=== PATIENT | male | born 1995 | race Caucasian/White ===

== ENCOUNTER 2018-01-20 17:41 | Emergency (ER) | payer SELFPAY ==
[~2018-01-20] VITALS: Ht 177.8 cm; Wt 74.8 kg
--- NOTE | 2018-01-20 17:47 | NUR ---
PT VINCENZO TO ER BED 12. HERE FOR AMS S/P METH USE. APPEARS ANXIOUS. STABLE VITALS AWAITING MD BYRNES.
[2018-01-20] MEDS ORDERED: LORAZEPAM 1 MG TABLET PO ONE (18:00)
[2018-01-20 18:03] LABS: BASOPHILS % (AUTO) 0.1 % (0.0-2.0); EOSINOPHILS # (AUTO) 0.1 /CMM (0.0-0.7); EOSINOPHILS % (AUTO) 0.6 % (0.0-6.0); HEMATOCRIT 47 % (39-51); HEMOGLOBIN 16.4 g/dL (13.5-17.5); LYMPHOCYTES # (AUTO) 2.4 /CMM (0.8-4.8); LYMPHOCYTES % (AUTO) 22.7 % (20.0-44.0); MEAN CORPUSCULAR HEMOGLOBIN 31 PG (26.0-33.0); MEAN CORPUSCULAR HGB CONC 35 g/dl (31.0-36.0); MEAN CORPUSCULAR VOLUME 89 fL (80-96); MONOCYTES # (AUTO) 0.3 /CMM (0.1-1.30); MONOCYTES % (AUTO) 2.6 % (2.0-12.0); NEUTROPHILS # (AUTO) 7.7 /CMM (1.8-8.9); PLATELET COUNT (AUTO) 208 /CMM (150-450); RDW COEFFICIENT OF VARIATION 12.5 (11.5-15.0); RED BLOOD CELL COUNT(AUTO) 5.25 MIL/uL (4.5-6.0); WHITE BLOOD COUNT (AUTO) 10.5 K/uL (4.3-11.0)
[2018-01-20] MEDS ORDERED: LORAZEPAM 1 MG TABLET ONE (18:10)
[2018-01-20 18:21] LABS: CALCIUM, SERUM 9.7 mg/dL (8.5-10.1); CARBON DIOXIDE 25 mmol/L (21-32); CHLORIDE 99 mmol/L (98-107); CREATININE 1.2 mg/dL (0.6-1.3); GLUCOSE 101 mg/dL (74-106); POTASSIUM 3.2 mmol/L (3.5-5.1); SODIUM SERUM 138 mmol/L (136-145); UREA NITROGEN, BLOOD 12 mg/dL (7-18)
[2018-01-20 18:31] LABS: ALANINE AMINOTRANSFERASE 40 U/L (12-78); ALBUMIN 4.5 g/dL (3.4-5.0); ALKALINE PHOSPHATASE 98 U/L (46-116); ASPARTATE AMINOTRANSFERASE 33 U/L (15-37); BILIRUBIN,DIRECT 0.2 mg/dL (0.0-0.2); BILIRUBIN,TOTAL 0.7 mg/dL (0.2-1.0); SALICYLATE 2.9 mg/dL (2.8-20.0); TOTAL PROTEIN, SERUM 8.2 g/dL (6.4-8.2)
[2018-01-20 19:32] LABS: ACETAMINOPHEN < 2 ug/ml (10-30); ALCOHOL, BLOOD < 3 mg/dL (0-0)
--- NOTE | 2018-01-20 19:40 | NUR ---
DR YING AT BEDSIDE FOR EVAL.
--- NOTE | 2018-01-20 19:42 | NUR ---
PT IS AAOX4, AMBULATORY W/ STEADY GAIT. OK FOR D/C. VERBALLY DISCHARGE BY DR YING.
[2018-01-20 19:43] VITALS: BP 132/84
== END 2018-01-20 19:44 | disposition home or self-care (01) ==
LOC: ER 17:43
DX: F15.10 Other stimulant abuse, uncomplicated (principal)
CPT/HCPCS: 36415; 80048; 80076; 80329; 85025; 99284; A4606; G0480 ×2; Z7610

== ENCOUNTER 2018-01-23 08:39 | Inpatient (IN) | payer SELFPAY ==
[~2018-01-23] VITALS: Ht 175.3 cm; Wt 81.2 kg
--- NOTE | 2018-01-23 11:00 | NUR ---
[id number] FROM STRE[address]: BIZARRE BEHAVIOR S/P USING METHAMPHETAMINES, PT WAS SEEN BY , NO FURTHER ORDERS GIVEN.
--- NOTE | 2018-01-23 15:00 | NUR ---
DR MONTES DE OCA AT BS
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
[2018-01-23] MEDS ORDERED: LORAZEPAM 1 MG TABLET ONE (15:26)
--- NOTE | 2018-01-23 15:27 | NUR ---
THIEN SHEET METAL DUCT INSTALLER HELPER AT
[2018-01-23] MEDS ORDERED: LORAZEPAM 1 MG TABLET PO ONE (15:30)
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
--- NOTE | 2018-01-23 15:45 | NUR ---
PT BECOMING RESTLESSNESS, AND AGGRESSIVE TOWARDS THE STAFF. ZYPREXA 10MG GIVEN IM INSTEAD OF ZYPREXA PO.
--- NOTE | 2018-01-23 15:46 | NUR ---
ZYPREXA 10MG TABLET WASTED AND WITNESSED BY ISHMAEL, CHARGE NURSE.
[2018-01-23] MEDS ORDERED: OLANZAPINE 5 MG TABLET ONE (15:49)
[2018-01-23] MEDS ORDERED: OLANZAPINE 10 MG VIAL IM ONE ×4 (15:55→22:00)
[2018-01-23] MEDS ORDERED: OLANZAPINE 5 MG TABLET PO ONE (16:00)
--- NOTE | 2018-01-23 16:12 | NUR ---
NAINA, PTS FRIEND AND THIEN AT BS.
[2018-01-23] MEDS ORDERED: LORAZEPAM INJ 2 MG/ML VIAL IM ONE ×2 (16:30→21:30)
--- NOTE | 2018-01-23 17:07 | NUR ---
Patient is resting comfortably in bed with eyes closed. Easily aroused. VSS
--- NOTE | 2018-01-23 19:29 | NUR ---
PAGED EPIC FOR PANEL
--- NOTE | 2018-01-23 19:38 | NUR ---
CALLED NURSE SUP FOR MEDSURG BED WITH SITTER
[2018-01-23] MEDS ORDERED: MAGNESIUM HYDROXIDE 30 ML UDC PO PRN (21:00)
[2018-01-23] MEDS ORDERED: HYDROCODONE/APAP 5/325MG 1 EACH TABLET PO PRN (21:00)
[2018-01-23] MEDS ORDERED: ONDANSETRON HCL/PF 4 MG/2 ML VIAL IVP PRN (21:00)
[2018-01-23] MEDS ORDERED: HALOPERIDOL LACTATE INJ 5 MG/ML VIAL IM PRN (21:00)
[2018-01-23] MEDS ORDERED: MAG HYDROX/AL HYDROX/SIMETH 30 ML UDC PO PRN (21:00)
[2018-01-23] MEDS ORDERED: LIDOCAINE 2% JEL UROJET 10 ML MM ONE (21:00)
[2018-01-23] MEDS ORDERED: ACETAMINOPHEN 325 MG TABLET PO PRN (21:00)
[2018-01-23 21:07] LABS: BASOPHILS % (AUTO) 0.6 % (0.0-2.0); EOSINOPHILS # (AUTO) 0.1 /CMM (0.0-0.7); EOSINOPHILS % (AUTO) 1.5 % (0.0-6.0); HEMATOCRIT 43 % (39-51); HEMOGLOBIN 15.2 g/dL (13.5-17.5); LYMPHOCYTES # (AUTO) 2.1 /CMM (0.8-4.8); LYMPHOCYTES % (AUTO) 40.6 % (20.0-44.0); MEAN CORPUSCULAR HEMOGLOBIN 32 PG (26.0-33.0); MEAN CORPUSCULAR HGB CONC 35 g/dl (31.0-36.0); MEAN CORPUSCULAR VOLUME 90 fL (80-96); MONOCYTES # (AUTO) 0.6 /CMM (0.1-1.30); MONOCYTES % (AUTO) 11.3 % (2.0-12.0); NEUTROPHILS # (AUTO) 2.3 /CMM (1.8-8.9); PLATELET COUNT (AUTO) 169 /CMM (150-450); RDW COEFFICIENT OF VARIATION 12.8 (11.5-15.0); RED BLOOD CELL COUNT(AUTO) 4.82 MIL/uL (4.5-6.0); WHITE BLOOD COUNT (AUTO) 5.1 K/uL (4.3-11.0)
[2018-01-23 21:15] LABS: CALCIUM, SERUM 8.9 mg/dL (8.5-10.1); CARBON DIOXIDE 26 mmol/L (21-32); CHLORIDE 104 mmol/L (98-107); CREATININE 0.9 mg/dL (0.6-1.3); GLUCOSE 85 mg/dL (74-106); POTASSIUM 3.9 mmol/L (3.5-5.1); SODIUM SERUM 141 mmol/L (136-145); UREA NITROGEN, BLOOD 12 mg/dL (7-18)
[2018-01-23] MEDS ORDERED: LORAZEPAM INJ 2 MG/ML VIAL ONE (21:15)
[2018-01-23 21:18] LABS: ALANINE AMINOTRANSFERASE 34 U/L (12-78); ALBUMIN 3.9 g/dL (3.4-5.0); ALCOHOL, BLOOD < 3 mg/dL (0-0); ALKALINE PHOSPHATASE 91 U/L (46-116); ASPARTATE AMINOTRANSFERASE 25 U/L (15-37); BILIRUBIN,DIRECT 0.2 mg/dL (0.0-0.2); TOTAL PROTEIN, SERUM 7.1 g/dL (6.4-8.2)
[2018-01-23 21:19] LABS: APPEARANCE,URINE Clear (CLEAR); BILIRUBIN,URINE Negative (NEGATIVE); BLOOD, URINE Trace-lysed Ery/uL (NEGATIVE); COLOR,URINE Yellow (YELLOW); KETONES,URINE Trace (NEGATIVE); LEUKOCYTE ESTERASE ,URINE Negative (NEGATIVE); NITRITE, URINE Negative (NEGATIVE); PROTEIN,URINE Negative (NEGATIVE); UGLUCOSE Negative (NEGATIVE)
[2018-01-23 21:19] LABS: ACETAMINOPHEN 0 ug/ml (10-30); SALICYLATE 2.4 mg/dL (2.8-20.0)
--- NOTE | 2018-01-23 21:21 | NUR ---
URINE SENT TO LAB
[2018-01-23 21:39] LABS: BACTERIA,URINE Rare /HPF (None Seen); MUCUS,URINE Few /LPF (None Seen); RBC,URINE 2-3/HPF /HPF (0-2); SQUAMOUS EPITHELIAL CELL,UR Rare /HPF (None Seen); URINE AMORPHOUS URATE Few /HPF (None Seen)
--- NOTE | 2018-01-23 22:48 | NUR ---
PER DR SPENCER, OBSERVE THE PT OVERNIGHT.
--- NOTE | 2018-01-23 22:53 | NUR ---
Patient is resting comfortably in bed with eyes closed. Easily aroused. VSS
--- NOTE | 2018-01-23 23:21 | NUR ---
REPORT GIVEN TO RHIANNON Mac RN.
--- NOTE | 2018-01-23 23:30 | NUR ---
patient resting in er bed, no distress noted, skin warm and dry. will continue to monitor
--- NOTE | 2018-01-24 00:29 | NUR ---
VITAL SIGNS UPDATED. PATIENT IS RESTING IN ER BED, NO DISTRESS NOTED, SKIN WARM AND DRY. WILL CONTINUE TO MONITOR. PATIENT IS ON UTILITY WORKER ROLLER SHOP
--- NOTE | 2018-01-24 02:35 | NUR ---
report was given to wilmer CARDONA for MS admission. patient was transported to [place] via wheelchair by EMT
--- NOTE | 2018-01-24 02:45 | NUR ---
RN OPENING NOTES RECEIVED PATIENT FROM ER, ALERT AND ORIENTED X1. PATIENT IS RESTLESS AND AGITATED, UNABLE TO PROVIDE PAST MEDICAL HISTORY. S/P USING METHAMPHETAMINES. PATIENT IS FROM [place]. RESPIRATIONS EVEN AND UNLABORED. BS X4. VS STABLE. NO SOB NOTED. IV ACCESS ON LEFT HAND PATENT AND INTACT, NO REDNESS OR INFILTRATION NOTED. BED IN LOW AND LOCKED POSITION, SIDE RAILS X2. CALL LIGHT WITHIN EASY REACH. WILL CONTINUE TO MONITOR AND ASSESS DURING THE SHIFT.
[2018-01-24 03:00] VITALS: BP 99/58
--- NOTE | 2018-01-24 06:25 | NUR ---
RN CLOSING NOTES PATIENT IS SLEEPING IN BED, EASY TO AROUSE, ALERT AND ORIENTED X1. NO PAIN OR DISCOMFORT NOTED AT THIS TIME. RESPIRATIONS EVEN AND UNLABORED. VS STABLE. NO SOB NOTED. IV ACCESS ON LEFT HAND PATENT AND INTACT, NO REDNESS OR INFILTRATION NOTED. BED IN LOW AND LOCKED POSITION, SIDE RAILS X2. CALL LIGHT WITHIN EASY REACH. WILL ENDORSE TO RN DAY SHIFT FOR RAJANI.
--- NOTE | 2018-01-24 07:15 | NUR ---
MS RN NOTES PATIENT RECEIVED RESTING INSIDE ROOM, SLEEPING IN AND OUT. VERBALLY RESPONSIVE AND RESPONDS TO VERBAL AND TACTILE STIMULI. MUMBLES AUDIBLE WORDS BUT IN MIXED CZECH AND FOREIGN LANGUAGE. PATIENT CALM AT THIS TIME. WILL CONTINUE TO MONITOR. BED LOCKED AND IN LOW POSITION. BILATERAL UPPER SIDE RAILS UP AND LOCKED. CALL LIGHT WITHIN EASY REACH.
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
[2018-01-24 08:00] VITALS: BP 120/88
[2018-01-24] MEDS ORDERED: IV 1/2NS 1000 ML 1,000 ML IV PRN (09:00)
[2018-01-24] MEDS ORDERED: IV NS 0.9% 1,000 ML IV PRN (09:00)
--- NOTE | 2018-01-24 09:30 | NUR ---
MS RN NOTES PATIENT SEEN AND EXAMINED BY DR. MARTEL. NEW ORDERS NOTED AND CARRIED OUT
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
--- NOTE | 2018-01-24 11:00 | NUR ---
MS RN NOTES PATIENT WITH C/O HEADACHE WITH LEVEL OF 7/10. REQUESTED FOR PAIN MEDICATION. EXPLAINED THAT PATIENT HAS NORCO PO PRN FOR PAIN. GIVEN MEDICATION ORDERED PRN. WILL CONTINUE TO MONITOR
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
--- NOTE | 2018-01-24 11:40 | NUR ---
PURNIMA received a call back from Glen Cutler from the [place] [facility] [place] informing SW that he did get her message yesterday and spoke to Dr. Humphries last night. PURNIMA explained pt's situation and Glen was able to confirm pt's identity and inform PURNIMA that he will come by at 1:30 PM today to meet with pt. and PURNIMA. Med Surg 3 BRENDAN Talavera was updated. Addendum: 01/24/18 at 1143 by THIEN FELTON Glen Cutler from [facility] can be reached at .
--- NOTE | 2018-01-24 12:00 | NUR ---
MS RN NOTES PATIENT SLEEPING INSIDE ROOM, EASILY AROUSABLE THROUGH VERBAL AND TACTILE STIMULI. OFFERED IV INSERTION BUT PATIENT REFUSED. RISKS AND BENEFITS EXPLAINED BUT TO NO AVAIL, OFFERED X 3, PATIENT STRONGLY REFUSED. VERBALIZED HE DOES NOT NEED HYDRATION HE CAN DRINK WATER BY HIMSELF. RESPECTED PATIENT'S RIGHTS. WILL CONTINUE TO MONITOR
--- NOTE | 2018-01-24 13:00 | NUR ---
MS RN NOTES [place] CONSUL DIRECTOR ORANGE, ISAAK CROWDER, PRESENT AT UNIT. PATIENT SEEN. VERBALIZED THAT THEY WILL CONTACT PATIENT'S FAMILY IN [place] TO COME AND SEE PATIENT. WILL CONTINUE TO MONITOR
--- NOTE | 2018-01-24 14:34 | NUR ---
PURNIMA met with [place] [facility]ul Glen Cutler, supervisor in charge Nino and pt's BRENDAN Khoury by pt's bedside. Pt. is asleep at this time. Glen informed PURNIMA that he contacted [place] and pt. has a long psychiatric history and is on medications. Pt's family had called [employer] [place] to inquire about pt's whereabouts since they had not heard from the pt. Pt. moved from [place] on with his medications but lost all his belongings plus passport. Glen informed PURNIMA he will call the pt's family and have them come by from [place] to take pt. back to [place]. Glen suggested if pt. can be placed on a 5150 hold by tomorrow if he tries to leave against medical advice. artificial limb maker Nino informed PURNIMA that she will speak with nursing light industrial supervisor Fouzia for a sitter bedside and if pt. tries to AMA will ask for crisis evaluation. Consul Glen informed PURNIMA he will have the pt's psychiatrist call SW or email pt's psychiatric diagnosis and list of medications. Social Field Sales Specialist Adrianne Guerrero was updated with the aforementioned information.
[2018-01-24 16:00] VITALS: BP 100/63
--- NOTE | 2018-01-24 18:55 | NUR ---
MS RN NOTES PATIENT RESTING INSIDE ROOM, SLEEPING BUT AROUSABLE THROUGH VERBAL AND TACTILE STIMULI, THEN WOULD GO BACK TO SLEEP. PATIENT BREATHING EVEN AND UNLABORED. NO SOB OR ACUTE DISTRESS NOTED AT THIS TIME. PATIENT AFEBRILE, SKIN DRY AND WARM TO TOUCH. NO CHANGES IN LOC NOTED AT THIS TIME. WILL CONTINUE TO MONITOR. BILATERAL UPPER SIDE RAILS UP AND LOCKED. BED LOCKED AND IN LOW POSITION. BED ALARM ON. WILL ENDORSE TO INCOMING SHIFT
--- NOTE | 2018-01-24 19:40 | NUR ---
ms/rn opening notes RECEIVED PATIENT, ASLEEP, RESTING COMFORTABLY IN BED, RESPIRATIONS EVEN AND UNLABORED, WITH SITTER TO MONITOR BEHAVIOR, REFUSE IV RE INSERTION REPORTED BY AM RN, RECEIVED REPORT FROM AM RN FOR RAJANI. CALL LIGHTS WITHIN REACH, BED IN LOCK POSITION. SKIN WARM TO TOUCH, WILL PROVIDE FLUID AND KEEP COMFORTABLE.
--- NOTE | 2018-01-24 19:46 | NUR ---
Patient admitted with altered mental status,talking incoherently, drug screen positive for Amphetamines, benzo, cocaine and cannabis. Patient is from [place]. Per report, patient lost his belongings and passport. [place] [facility] was contacted by public health social worker. Per public health social worker, patient parent are scheduled to fly to [place] this . Addendum: 01/24/18 at 1948 by OLGA LIDIA BROWNLEE RN Amended: Links added.
[2018-01-24 20:00] VITALS: BP 120/57
--- NOTE | 2018-01-25 06:26 | NUR ---
MS/RN NOTES' PATIENT IN BED, ABLE TO SLEEP DURING THE NIGHT, AWAKENS AND REPORTED HUNGRY, PROVIDED SNACKS AND FLUID, TOLERATED FOOD AND ABLE TO URINATE , SUPERVISED. COOPERATIVE TO CARE AND VERBALIZED UNABLE TO RECALL WHAT HAD HAPPEN . WILL REORIENT AND MONITOR PATIENT.WILL ENDORSE TO AM RN FOR RAJANI.
[2018-01-25 08:00] VITALS: BP 111/73
--- NOTE | 2018-01-25 08:07 | NUR ---
MS RN OPENING NOTE RECEIVED BEDSIDE SBAR REPORT ON THE PATIENT. PATIENT IS A/0 X2, ASLEEP, EASILY AWAKEN IN BED. BED IS LOCKED, IN LOWEST POSITION, SIDE RAILS UP X3, BED ALARM IS ON. PATIENT IS AMBULATORY WITH STEADY GAIT, BUT PRESENTS AT RISK FOR FALL DUE TO AMS. USES URINAL AND BRP WITH ASSISTANCE. SKIN IS INTACT. DENIES PAIN/DISCOMFORT AT THIS TIME. ALL BELONGINGS WITHIN REACH. ALL NEEDS ARE MET. CALL LIGHT WITHIN REACH. ROBB PADGETT AT THE BEDSIDE. EDUCATED TO CALL FOR ASSISTANCE USING THE CALL LIGHT. PATIENT VERBALIZED UNDERSTANDING. WILL CONTINUE TO ASSESS/MONITOR THROUGHOUT THE SHIFT.
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
--- NOTE | 2018-01-25 09:02 | NUR ---
RECEIVED VERBAL ORDER FROM DR. RICCI FOR PSYCH CONSULT. PER DR RICCI NO IV ACCESS IS OK. PHYSICIAN CONSULT ORDERED.
--- NOTE | 2018-01-25 11:58 | NUR ---
PURNIMA received a call from Glen Cutler from the [place] [facility] informing PURNIMA that he will come by to see the pt. today around 2:30PM.
[2018-01-25] MEDS ORDERED: BENZTROPINE MESYLATE (1 MG) 1 MG TABLET PO PRN (14:00)
[2018-01-25] MEDS ORDERED: HALOPERIDOL 5 MG TABLET PO PRN (14:00)
[2018-01-25] MEDS ORDERED: LORAZEPAM 1 MG TABLET PO PRN (14:00)
--- NOTE | 2018-01-25 14:10 | NUR ---
TAILING MACHINE OPERATOR OF QI AT THE BEDSIDE.
[2018-01-25 16:00] VITALS: BP 111/73
--- NOTE | 2018-01-25 16:23 | NUR ---
PATIENTHAS A FRIEND VISITING AT THE BEDSIDE.
--- NOTE | 2018-01-25 16:23 | NUR ---
MANAGER GLOBAL ISAAK CHUN.
--- NOTE | 2018-01-25 16:27 | NUR ---
PURNIMA met with pt. and [place] [facility] Glen at bedside. Glen spoke to pt. in [place]og[place]. Pt. continues to decline going back to [place] and have his parents come to pick him up. Pt. wants to stay in the [place] despite of lack of supports. According to Glen, Consulate cannot violate HIPAA and talk to his parents without his consent. Parents are concerned about pt. Pt. lacks insight and is not open to any advise given to him. Pt. denies suicidal ideations. PURNIMA and Glen encouraged pt. to return to [place], however pt. insisted on staying in [place]. When PURNIMA inquired pt. about his drug use, pt. stated he has been using drugs since the age of 18 in [place]. Pt. is drug seeking and requested for Morphine from his RN Genevieve. Pt. was declined since has not prescription for Morphine. Pt. has opted to leave AMA. Pt. called a friend he met recently named Esequiel Lerma . Esequiel is coming to the hospital to assist pt. PURNIMA gave pt. the following resources: List of homeless resources, shelters, mental health centers and list of [facility]. Pt. has a return ticket to [place] in two weeks. PURNIMA, Glen and Esequiel discussed pt's disposition and discharge plan and Glen gave esequiel his contact information as well and informed her that the [place] [facility] from [place] will contact her as well. No other social service needs are required at this time. PURNIMA is available if needed.
--- NOTE | 2018-01-25 16:36 | NUR ---
PATIENT LEFT THE UNIT AGAINST MEDICAL ADVICE. AMA FORM SIGNED. PATIENT LEFT THE UNIT IN STABLE CONDITION ACCOMPANIED BY FRIEND. PATIENT STATED HE IS GOING TO GO TO A COFFEE SHOP NEAR BY TO SIT DOWN AND THINK OF A PLAN FOR THE FUTURE. DENIED THOUGHTS OF HARMING SELF/OTHERS. NO IV ACCESS. ALL BELONGINGS ARE TAKEN BY THE PATIENT.
== END 2018-01-25 16:30 | disposition left against medical advice (07) | DRG 917 ==
LOC: ER 08:41 → MED 01-24 02:24
DX: T50.991A Poisoning by other drugs, medicaments and biological substances, accidental (unintentional), initial encounter (principal); G92 Toxic encephalopathy; F12.10 Cannabis abuse, uncomplicated; F29 Unspecified psychosis not due to a substance or known physiological condition; F15.159 Other stimulant abuse with stimulant-induced psychotic disorder, unspecified; F14.10 Cocaine abuse, uncomplicated; F13.10 Sedative, hypnotic or anxiolytic abuse, uncomplicated; Y92.009 Unspecified place in unspecified non-institutional (private) residence as the place of occurrence of the external cause
CPT/HCPCS: 36415; 80048-TC; 80076-TC; 80305; 81000-TC; 85025-TC; 87081-TC; A4606; G0480; J1630; J2060; J3490; J7030; Z7610